=== PATIENT | female | born 1975 | race Caucasian/White ===

== ENCOUNTER → 2023-10-08 15:57 | Outpatient (REF) | payer OTHER, SELFPAY | LOC: WDC 15:57 | PROVIDERS: ATTENDING PHYSICIAN Physician Assistant Medical | DX: Z12.31 Encounter for screening mammogram for malignant neoplasm of breast (principal) | CPT/HCPCS: 77063; 77067 ==

== ENCOUNTER → 2023-11-26 10:03 | Outpatient (REF) | payer OTHER, SELFPAY | LOC: RAD 10:03 | PROVIDERS: ATTENDING PHYSICIAN Physician Assistant Medical | DX: J20.9 Acute bronchitis, unspecified (principal) | CPT/HCPCS: 71046 ==

== ENCOUNTER → 2024-10-12 08:24 | Outpatient (REF) | payer OTHER, SELFPAY | LOC: WDC 08:24 | PROVIDERS: ATTENDING PHYSICIAN Nurse Practitioner Family | DX: Z12.31 Encounter for screening mammogram for malignant neoplasm of breast (principal) | CPT/HCPCS: 77063; 77067 ==

== ENCOUNTER → 2025-08-08 17:29 | Outpatient (REF) | payer OTHER, SELFPAY | LOC: RAD 17:29 | PROVIDERS: ATTENDING PHYSICIAN Physician Assistant Medical | DX: M54.2 Cervicalgia (principal); M54.9 Dorsalgia, unspecified; M54.50 Low back pain, unspecified; V89.2XXA Person injured in unspecified motor-vehicle accident, traffic, initial encounter | CPT/HCPCS: 72052; 72072; 72110 ==